=== PATIENT | male | born 1995 | race Caucasian/White ===

== ENCOUNTER 2017-11-04 19:32 | Emergency (ER) | payer BC ==
--- NOTE | 2017-11-04 21:42 | ED ---
HPI Febrile Illness - HPI Summary HPI Summary: Complains of fever to 104, 10/10 generalized SAUCEDO, dry cough, stiff neck, sore throat, nausea starting this morning. Denies contact exposure, altered mental status, seizures, ear pain, nasal discharge, vision change, sore throat, CP, SOB , V/D, abdominal pain, change in urinary BM. Headache improves with ibuprofen. Medical history is none. Patient took ibuprofen at 7 PM. - History of Current Complaint Chief Complaint: EDFever Time Seen by Provider: 11/04/17 21:07 Hx Obtained From: Patient, Family/Resin Filterer Onset/Duration: Started Hours Ago Timing: Constant Initial Severity: Moderate Current Severity: Moderate Pain Intensity: 6 Pain Scale Used: 0-10 Numeric Aggravating Factors: Nothing Alleviating Factors: OTC Medicine Associated Signs and Symptoms: Cough, Headache, Nausea, Sore Throat, Stiff Neck - Risk Factors Pseudomonas Risk Factors: Negative Serious Bacterial Infection Risk Factors: Negative - Allergy/Home Medications Allergies/Adverse Reactions: Allergies Allergy/AdvReac Type Severity Reaction Status Date / Time No Known Allergies Allergy Verified 11/04/17 21:38 PMH/Surg Hx/FS Hx/Imm Hx Infectious Disease History: No Infectious Disease History: Denies: Traveled Outside the [place] in Last 30 Days Review of Systems Positive: Fever Eyes: Negative Positive: Sore Throat Cardiovascular: Negative Respiratory: Negative Positive: Nausea Genitourinary: Negative Musculoskeletal: Negative Skin: Negative Positive: Headache Psychological: Normal All Other Systems Reviewed And Are Negative: Yes Physical Exam Triage Information Reviewed: Yes Vital Signs On Initial Exam: Initial Vitals Temp Pulse Resp BP Pulse Ox 98.5 F 99 16 101/66 98 11/04/17 19:45 11/04/17 19:45 11/04/17 19:45 11/04/17 19:45 11/04/17 19:45 Vital Signs Reviewed: Yes Appearance: Positive: Well-Appearing Skin: Positive: Warm Head/Face: Positive: Normal Head/Face Inspection Eyes: Positive: Normal ENT: Positive: Pharyngeal erythema, TMs normal Neck: Negative: Nuchal Rigidity - Negative Kernig's, negative Brudzinski. Patient able to flex chin all the way to the chest. Tenderness to palpation along bilateral paraspinal muscles of neck Respiratory/Lung Sounds: Positive: Clear to Auscultation Cardiovascular: Positive: Normal Abdomen Description: Positive: Nontender Musculoskeletal: Positive: Normal Neurological: Positive: Normal Psychiatric: Positive: Normal AVPU Assessment: Alert - Rule Coma Scale Best Eye Response: 4 - Spontaneous Best Motor Response: 6 - Obeys Commands Best Verbal Response: 5 - Oriented Coma Scale Total: 15 Diagnostics - Vital Signs Vital Signs Temp Pulse Resp BP Pulse Ox 11/04/17 19:45 98.5 F 99 16 101/66 98 - Laboratory Lab Statement: Any lab studies that have been ordered have been reviewed, and results considered in the medical decision making process. Course/Dx - Course Course Of Treatment: Vital signs within normal limits. - Diagnoses Provider Diagnoses: Strep throat Discharge - Sign-Out/Discharge Documenting (check all that apply): Discharge/Admit/Transfer - Discharge Plan Condition: Stable Disposition: HOME Patient Education Materials: Strep Throat (ED) Referrals: Dianna Crowe MD [Primary Care Provider] - Additional Instructions: Take antibiotics as directed. Return to the ED for any new or worsening symptoms - Billing Disposition and Condition Condition: STABLE Disposition: HOME
--- NOTE | 2017-11-04 22:13 | RAD ---
Indication: Fever, cough. 2 views of the chest including dual energy PA views demonstrates no mediastinal shift. Heart is of normal size and configuration. Pectus excavatum deformity is noted. IMPRESSION: No active cardiopulmonary disease is noted.
[2017-11-04 23:01] VITALS: BP 108/61
== END 2017-11-04 23:00 | disposition home or self-care (01) ==
LOC: ED 19:32
DX: J02.0 Streptococcal pharyngitis (principal)
CPT/HCPCS: 71046; 87502; 87651; 99282

== ENCOUNTER 2017-11-05 12:44 | Emergency (ER) | payer BC ==
[2017-11-05] MEDS ORDERED: Acetaminophen TAB* 325 MG PO ONE (15:32)
[2017-11-05] MEDS ORDERED: NS 0.9% 1000 ML*IV.FLUID IV ONE (15:32)
[2017-11-05] MEDS ORDERED: PROCHLORPERAZINE INJ 5 MG/ML 2 ML VIAL IV ONE (15:33)
[2017-11-05] MEDS ORDERED: Ondansetron ODT TAB* 4 MG PO ONE (15:53)
--- NOTE | 2017-11-05 16:07 | ED ---
GI/ HPI - HPI Summary HPI Summary: Patient here with ongoing symptoms of headache, neck soreness, fatigue since diagnosis of strep throat yesterday. He admits he actually does not have a very sore throat when he swallows. He's been able to drink liquids today up until being here in the emergency department - has not had any liquids in the waiting room simply because he didn't think to drink any. The last dose of ibuprofen was at 9 AM this morning. He's had one dose of amoxicillin 875 mg at 10:00 this morning. He had a one-time episode of vomiting this morning. Denies photophobia, dysphagia, chest pain, trouble breathing, cough, abdominal pain, rash. He is still urinating and moving his bowels as usual. No diarrhea. He also had a half a sandwich earlier today. He has been run down - goes to school and works. No known sick contacts. Was seen last night and diagnosed with strep throat. He is up-to-date with immunizations and meningitis was ruled out clinically yesterday. He is here again today as his mom called his PCP to report he was not feeling better today, concerned about neck pain and episode of vomiting. PCP advised return to ED for evaluation. - History of Current Complaint Chief Complaint: EDFluSymptoms Time Seen by Provider: 11/05/17 15:31 Stated Complaint: DIAGNOSED STREP 11/04-WORSE TODAY Hx Obtained From: Patient, Family/Hammer Driver - mom, sister Pain Intensity: 8 - Allergy/Home Medications Allergies/Adverse Reactions: Allergies Allergy/AdvReac Type Severity Reaction Status Date / Time No Known Allergies Allergy Verified 11/05/17 12:48 PMH/Surg Hx/FS Hx/Imm Hx Previously Healthy: Yes Endocrine/Hematology History: Denies: Hx Diabetes, Autoimmune Disease Infectious Disease History: No Infectious Disease History: Denies: Traveled Outside the [place] in Last 30 Days - Social History Occupation: Employed Part-time, Student Lives: With Family Alcohol Use: Occasionally Hx Substance Use: No Substance Use Type: Reports: None Hx Tobacco Use: No Smoking Status (MU): Never Smoked Tobacco Review of Systems Positive: Fever - low-grade, Fatigue. Negative: Chills Eyes: Negative Positive: Sore Throat - mild Cardiovascular: Negative Respiratory: Negative Gastrointestinal: Negative Genitourinary: Negative Musculoskeletal: Other - neck is sore along anterior side Skin: Negative Positive: Headache. Negative: Weakness, Paresthesia, Numbness, Syncope, Slurred Speech Psychological: Normal All Other Systems Reviewed And Are Negative: Yes Physical Exam Triage Information Reviewed: Yes Vital Signs On Initial Exam: Initial Vitals Temp Pulse Resp BP Pulse Ox 100.9 F 101 16 107/64 97 11/05/17 12:48 11/05/17 12:48 11/05/17 12:48 11/05/17 12:48 11/05/17 12:48 Vital Signs Reviewed: Yes Appearance: Positive: Well-Appearing - Appears mildly fatigued; [place] Coma Scale 15; response timely and appropriate later questions; patient is sitting on stretcher with all lights on having conversation with mom and sister, Well- Nourished, Pain Distress - Mild Skin: Positive: Warm, Skin Color Reflects Adequate Perfusion, Dry - No rash Head/Face: Positive: Normal Head/Face Inspection Eyes: Positive: Normal, EOMI, ROGELIO - No photophobia, Conjunctiva Clear ENT: Positive: Hearing grossly normal, TMs normal, Tonsillar swelling, Tonsillar exudate, Uvula midline. Negative: Nasal congestion, Nasal drainage, Trismus, Muffled voice, Hoarse voice, Sinus tenderness Neck: Positive: Supple, No Lymphadenopathy, Tenderness @ - Anterior cervical chain tenderness Respiratory/Lung Sounds: Positive: Clear to Auscultation, Breath Sounds Present. Negative: Rales, Rhonchi, Stridor, Tracheal Deviation, Wheezes Cardiovascular: Positive: Normal, RRR, S1, S2. Negative: Murmur, Rub Abdomen Description: Positive: Nontender, No Organomegaly, Soft Bowel Sounds: Positive: Present Musculoskeletal: Positive: Normal, Strength/ROM Intact Neurological: Positive: Normal, Sensory/Motor Intact, Alert, Oriented to Person Place, Time, CN Intact II-III, Other - Negative Kernig, negative Brudzinski Psychiatric: Positive: Normal Diagnostics - Vital Signs Vital Signs Temp Pulse Resp BP Pulse Ox 11/05/17 14:30 99.6 F 73 14 101/66 99 11/05/17 12:48 100.9 F 101 16 107/64 97 - Laboratory Lab Statement: Any lab studies that have been ordered have been reviewed, and results considered in the medical decision making process. GIGU Course/Dx - Course Course Of Treatment: Patient is here for repeat visit due to recommendation by PCP when he reported he had neck pain a headache and was receiving diagnosed with strep throat. He has had one dose of antibiotic at 10:00 this morning and is due for a dose of ibuprofen. He is clinical exam is negative for meningitis. Vitals are stable. Offered patient and mom labs as well as IV medication to treat headache however they opted to take by mouth Zofran, ibuprofen and take already 3. elevated Course of amoxicillin with rest and hydration by mouth at home. Reviewed danger signs and symptoms of when to return to the emergency department. Patient and mom agree with plan. - Diagnoses Provider Diagnoses: Strep pharyngitis, Headache Discharge - Sign-Out/Discharge Documenting (check all that apply): Discharge/Admit/Transfer - Discharge Plan Condition: Stable Disposition: HOME Prescriptions: Ondansetron ODT TAB* [Zofran 4 MG Odt TAB*] 8 mg PO Q8H PRN #9 tab.odt PRN Reason: Nausea Patient Education Materials: Strep Throat (ED), Acute Headache (ED) Forms: *School Release Referrals: Dianna Crowe MD [Primary Care Provider] - Additional Instructions: Complete amoxicillin as directed Continue ibuprofen 800mg every 8 hours with food He may also use salt water gargles and hot tea with honey teenager sore throat Stay hydrated with water, Gatorade, soup broth - advance to soft foods and then solid foods as tolerated Rest *If he developed worsening of neck pain/stiffness, fever despite taking ibuprofen and/or acetaminophen, light sensitivity, return of vomiting, numbness , tingling, weakness, dizziness, syncope, return to the emergency department - Billing Disposition and Condition Condition: STABLE Disposition: HOME
[2017-11-05 16:25] VITALS: BP 110/74
== END 2017-11-05 16:24 | disposition home or self-care (01) ==
LOC: ED 12:44
DX: J02.0 Streptococcal pharyngitis (principal); R51 Headache
CPT/HCPCS: 99281; A9270-GY

== ENCOUNTER 2017-12-16 12:02 | Emergency (ER) | payer BC ==
[2017-12-16 12:50] VITALS: BP 106/72
--- NOTE | 2017-12-16 14:09 | UC ---
Shari Blackwell Tenzin, scribed for Toribio Turner MD on 12/16/17 at 1307 . Respiratory Complaint HPI - HPI Summary HPI Summary: Pt is an 21 years old male presenting to the [facility] complaining of sinus pain that was present for a couple of weeks. He is also complaining of constant coughs with green mucous, chest congestion and tightness around his chest. He denies ear pain. He normally gets seasonal allergies. He was recently on Augmentin for few weeks and just got off the medication. He takes Claritin normally for his sinus troubles. He does not have asthma. His strep throat test was negative. - History of Current Complaint Chief Complaint: UCRespiratory Stated Complaint: SINUS COMPLAINT Time Seen by Provider: 12/16/17 12:47 Hx Obtained From: Patient Onset/Duration: Lasting Weeks - last two to three weeks. Pain Intensity: 0 Character: Cough: Productive - green phelgm Aggravating Factors: Nothing Associated Signs And Symptoms: Positive: Negative - ear pain. - Allergies/Home Medications Allergies/Adverse Reactions: Allergies Allergy/AdvReac Type Severity Reaction Status Date / Time No Known Allergies Allergy Verified 12/16/17 12:50 Home Medications: Home Medications LoraTADine TAB(NF) [Claritin 10 MG TAB(NF)] 1 tab PO DAILY 12/16/17 [History Confirmed 12/16/17] PMH/Surg Hx/FS Hx/Imm Hx - Additional Past Medical History Additional PMH: Negative: DM, CVA, asthma - Surgical History Surgical History: None - Family History Known Family History: Positive: Other - Pt denies any relevant family history. - Social History Alcohol Use: Occasionally Substance Use Type: None Smoking Status (MU): Never Smoked Tobacco Review of Systems Constitutional: Negative Skin: Negative Eyes: Negative ENT: Sinus Pain/Tenderness Respiratory: Cough - green phelgm Cardiovascular: Other - Chest congestion and tightness. Gastrointestinal: Negative Genitourinary: Negative Motor: Negative Neurovascular: Negative Musculoskeletal: Negative Neurological: Negative Psychological: Negative All Other Systems Reviewed And Are Negative: Yes Physical Exam - Summary Physical Exam Summary: General: well-appearing, no pain distress Skin: warm, color reflects adequate perfusion, dry Head: normal Eyes: EOMI, ROGELIO ENT: Mild appearing, ears are normal, positive rhinorrhea, Tonsils 2+, positive pharynx erythema, positive cervical lymphadenopathy. Neck: supple, nontender Respiratory: Scattered bronchial breath sound with auscultations. Cardiovascular: RRR Abdomen: soft, nontender Bowel: present Musculoskeletal: normal, strength/ROM intact Neurological: sensory/motor intact, A&O x3 Psychological: affect/mood appropriate Triage Information Reviewed: Yes Vital Signs: Initial Vital Signs Temp 98.6 F 12/16/17 12:49 Pulse 95 12/16/17 12:49 Resp 14 12/16/17 12:49 BP 106/72 12/16/17 12:49 Pulse Ox 100 12/16/17 12:49 Vital Signs Reviewed: Yes Diagnostic Evaluation - Laboratory O2 Sat by Pulse Oximetry: 100 Respiratory Course/Dx - Course Course Of Treatment: Sinusitis Sx > 2 weeks. Rx Augmentin. Continue Sx treatment and F/U pmd if not improved. - Differential Dx/Diagnosis Provider Diagnoses: sinusutis Discharge - Sign-Out/Discharge Documenting (check all that apply): Discharge/Admit/Transfer - Discharge Plan Condition: Stable Disposition: HOME Prescriptions: Amoxicillin/Clavulanate TAB* [Augmentin TAB 875*] 875 mg PO BID #28 tab Patient Education Materials: Sinusitis (ED) Referrals: Dianna Crowe MD [Primary Care Provider] - Additional Instructions: FOLLOW UP WITH YOUR DOCTOR. GET RECHECKED FOR ANY WORSENING OF YOUR CONDITION OR QUESTIONS OR CONCERNS. - Billing Disposition and Condition Condition: STABLE Disposition: Home The documentation as recorded by the Shari snow Tenzin accurately reflects the service I personally performed and the decisions made by me, Toribio Turner MD.
== END 2017-12-16 13:12 | disposition home or self-care (01) ==
LOC: UCEAST 12:02
DX: J32.9 Chronic sinusitis, unspecified (principal)
CPT/HCPCS: 99212; G0463